=== PATIENT | male | born 2000 | race Caucasian/White ===

== ENCOUNTER 2022-12-01 16:33 | Emergency (ER) | payer OTHER ==
[~2022-12-01] VITALS: Ht 175.3 cm; Wt 68.2 kg
[2022-12-01] MEDS ORDERED: IBUPROFEN 800 MG TAB PO ONE (17:10)
[2022-12-01] MEDS ORDERED: IBUP80TA PO (18:15)
[2022-12-01 18:40] VITALS: BP 127/84
== END 2022-12-01 18:40 | disposition home or self-care (01) ==
LOC: M ED 16:33
DX: S83.91XA Sprain of unspecified site of right knee, initial encounter (principal); S93.601A Unspecified sprain of right foot, initial encounter; X50.1XXA Overexertion from prolonged static or awkward postures, initial encounter; Y93.01 Activity, walking, marching and hiking; Y99.1 Military activity